=== PATIENT | female | born 1965 | race Caucasian/White ===

== ENCOUNTER 2023-05-31 08:10 | Outpatient (OUT) | payer OTHER, SELFPAY ==
[2023-05-31 08:57] LABS: Basophils Absolute Auto 0.1 10^3/uL (0.0-0.1); Basophils Percent Auto 0.7 % (0.2-2.0); Eosinophils Absolute Auto 0.3 10^3/uL (0.0-0.7); Eosinophils Percent Auto 3.6 % (0.9-7.0); Hematocrit 43.9 % (36.0-48.0); Hemoglobin 14.4 g/dL (12.0-16.0); Immature Granulocytes Abs Auto 0.05 10^3/uL (0.00-0.03); Immature Granulocytes Pct Auto 0.5 % (0.0-0.5); Lymphocytes Absolute Auto 4.2 10^3/uL (1.2-3.8); Lymphocytes Percent Auto 46.2 % (20.5-60.0); Mean Corpuscular HGB Conc 32.8 g/dL (29.9-35.2); Mean Corpuscular Hemoglobin 29.7 pg (26.7-34.0); Mean Corpuscular Volume 90.5 fL (81.0-99.0); Mean Platelet Volume 10.8 fL (9.5-13.5); Monocytes Absolute Auto 0.7 10^3/uL (0.3-0.8); Monocytes Percent Auto 7.5 % (1.7-12.0); Neutrophils Absolute Auto 3.8 10^3/uL (1.4-6.5); Neutrophils Percent Auto 41.5 % (43.0-75.0); Platelet Count 244 10^3/uL (150-450); Red Blood Count 4.85 10^6/uL (4.20-5.40); Red Cell Distribution Width 13.6 % (11.0-15.0); White Blood Count 9.2 10^3/uL (4.0-11.0)
[2023-05-31 10:46] LABS: Anion Gap 11.1; BUN Creatinine Ratio 26.9; Calcium 9.2 mg/dL (8.5-10.1); Carbon Dioxide 28.1 mmol/L (21.0-32.0); Chloride 106 mmol/L (98-107); Estimated GFR (African America >60 (>=60); Estimated GFR (Non-African Ame >60 (>=60); Glucose 103 mg/dL (74-106); Potassium 4.2 mmol/L (3.5-5.1); Sodium 141 mmol/L (136-145)
[2023-05-31 10:47] LABS: Alanine Aminotransferase 36 U/L (14-59); Albumin Globulin Ratio 0.9; Albumin Level 3.6 g/dL (3.4-5.0); Alkaline Phosphatase 79 U/L (46-116); Aspartate Amino Transferase 18 U/L (15-37); Bilirubin Total 0.3 mg/dL (0.2-1.0); Chol HDL Ratio 7.5; Cholesterol 226 mg/dL (<=200); Globulin 3.8 g/dL; HDL Cholesterol 30 mg/dL (40-60); Total Protein 7.4 g/dL (6.4-8.2); Triglycerides 250 mg/dL (<=150)
[2023-05-31 12:45] LABS: Estimated Average Glucose 123 mg/dL; Glycohemoglobin A1C 5.9 % (4.5-6.2)
[2023-06-01 05:08] LABS: HCV Ab Non Reactive (Non Reactive); HIV Ab/p24 Ag Screen Non Reactive (Non Reactive)
== END 2023-05-31 08:11 | disposition home or self-care (01) ==
LOC: LAB 08:15
PROVIDERS: PCP Nurse Practitioner Primary Care; Visit Provider Nurse Practitioner Primary Care
DX: Z11.59 Encounter for screening for other viral diseases (principal); I10 Essential (primary) hypertension; Z11.4 Encounter for screening for human immunodeficiency virus [HIV]; E78.5 Hyperlipidemia, unspecified; E78.1 Pure hyperglyceridemia; R73.03 Prediabetes
CPT/HCPCS: 36415; 80053; 80061; 83036; 84443; 85025; 86803; 87389

== ENCOUNTER 2023-06-07 07:56 | Outpatient (OUT) | payer OTHER, SELFPAY ==
--- NOTE | 2023-06-07 07:58 | MM_ITS ---
Patient: JUAN CARLOS SALAZAR Exam Date: 06/07/2023 : 1965 Gender:F Ordering : WHIT OrellanaNanci ANNABELLE Admission #: [id number] Family : Order #: [id number] CLICK HERE TO VIEW EXAM RADIOLOGY REPORT PROCEDURE: MM TOMOSYNTHESIS SCREENING BI COMPARISON: MAMMO LUIS SCREEN, 07/18/2013. MAMMO LUIS SCREEN, 01/16/2010. INDICATIONS: Screening Calculator Name NCI Breast Cancer Risk Assessment Tool 5 Year Breast Cancer Risk 1.60% Lifetime Breast Cancer Risk 8.10% Personal Breast Cancer No Personal Ovarian Cancer No Treatments None Family Cancers None LOCATION: The [facility] BREAST COMPOSITION: Scattered areas fibroglandular density. FINDINGS: DIAGNOSTIC CATEGORY 0--INCOMPLETE: NEED ADDITIONAL IMAGING EVALUATION. Scattered benign-appearing calcifications are present. Scattered benign-appearing lymph nodes are present. RIGHT BREAST: No significant suspicious finding. LEFT BREAST: 7.9 x 5 mm nodule upper outer quadrant, anterior breast. Spot compression images and ultrasound follow-up is recommended for further evaluation. RECOMMENDATIONS: ADDITIONAL MAMMOGRAPHIC VIEWS REQUIRED: LEFT BREAST - spot compression ULTRASOUND: LEFT BREAST PLEASE NOTE: A NORMAL MAMMOGRAM DOES NOT EXCLUDE THE POSSIBILITY OF BREAST CANCER. A CLINICALLY SUSPICIOUS PALPABLE LUMP SHOULD BE BIOPSIED. Dictated by: Uday Narayan MD on 06/07/2023 at 14:11 Approved by: Uday Narayan MD on 06/07/2023 at 14:13
--- NOTE | 2023-06-07 08:28 | CT_ITS ---
The [address] [address] Patient Name: JUAN CARLOS SALAZAR MRN: [id number] date: 1965 Sex: F Assigned Patient Location: MAMMO Current Patient Location: Accession/Order Number: [id number] Exam Date: 06/07/2023 08:22 Report Date: 06/09/2023 06:26 At the request of: WHIT ALANIS Procedure: CT lung screening low-dose EXAMINATION: CT lung screening low-dose HISTORY: Screening For Malignant Neoplasm Of Respiratory COMPARISON: No relevant comparison available. TECHNIQUE: Axial, Coronal, and Sagittal images were created without the administration of IV contrast material. Dose reduction techniques were achieved by using automated exposure control and/or adjustment of mA and/or kV according to patient size and/or use of iterative reconstruction technique. FINDINGS: LUNGS: A few calcified granulomas. No suspicious nodules or acute infiltrates. PLEURA: No mass, effusion, or pneumothorax. VASCULATURE: No abnormality. ELIDIA: Calcified right hilar lymph nodes compatible with chronic granulomatous disease. MEDIASTINUM: No mass or pathologic adenopathy. CARDIAC: No enlargement, pericardial thickening, or significant calcification. AORTA: No aneurysm or dissection. CHEST WALL: No mass or axillary adenopathy BONES: No bone lesion or fracture. LIMITED ABDOMEN: No suspicious findings. Limited images of the upper abdomen. OTHER: Negative. CT/CT lung screening low-dose IMPRESSION: 1. Lung-RADS Category 1 Negative. No nodules and definitely benign nodules. Continue annual screening with LDCT in 12 months. Electronically authenticated by: YOSI MAURER Date: 06/09/2023 06:26
== END 2023-06-07 07:57 | disposition home or self-care (01) ==
LOC: MAMMO 07:56
PROVIDERS: PCP Nurse Practitioner Primary Care; Visit Provider Nurse Practitioner Primary Care
DX: Z12.31 Encounter for screening mammogram for malignant neoplasm of breast (principal); Z12.2 Encounter for screening for malignant neoplasm of respiratory organs; N63.21 Unspecified lump in the left breast, upper outer quadrant
CPT/HCPCS: 71271; 77063; 77067

== ENCOUNTER 2023-06-16 15:00 | Outpatient (OUT) | payer OTHER, SELFPAY ==
--- NOTE | 2023-06-16 15:07 | MM_ITS ---
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 INDICATIONS: Calculator Name NCI Breast Cancer Risk Assessment Tool 5 Year Breast Cancer Risk 1.60% Lifetime Breast Cancer Risk 8.10% Personal Breast Cancer No Personal Ovarian Cancer No Treatments None Family Cancers None LOCATION: The [facility] BREAST COMPOSITION: Scattered areas fibroglandular density. FINDINGS: DIAGNOSTIC CATEGORY 4--SUSPICIOUS FOR MALIGNANCY. FINDING DOES NOT EXHIBIT CLASSIC FINDINGS OF BREAST CANCER: Spot compression images demonstrate a persistent nodule measuring 6.1 by 3.7 mm upper outer quadrant of the left breast. Ultrasound demonstrates at the 11 o'clock position a cystic lesion measuring 8.1 x 6.9 x 3.7 mm. This lesion has several internal septations, low level echoes and some peripheral vascularity. This does not have the typical appearance of a node and is indeterminate. In light of the peripheral soft tissue with vascularity, biopsy is recommended. This is amenable to ultrasound-guided core biopsy. RECOMMENDATIONS: ULTRASOUND-GUIDED CORE BIOPSY: LEFT BREAST PLEASE NOTE: A NORMAL MAMMOGRAM DOES NOT EXCLUDE THE POSSIBILITY OF BREAST CANCER. A CLINICALLY SUSPICIOUS PALPABLE LUMP SHOULD BE BIOPSIED. Dictated by: Uday Narayan MD on 06/17/2023 at 14:17 Approved by: Uday Narayan MD on 06/17/2023 at 14:19
== END 2023-06-16 15:01 | disposition home or self-care (01) ==
LOC: US 15:04
PROVIDERS: PCP Nurse Practitioner Primary Care; Visit Provider Nurse Practitioner Primary Care
DX: R92.8 Other abnormal and inconclusive findings on diagnostic imaging of breast (principal); N63.21 Unspecified lump in the left breast, upper outer quadrant
CPT/HCPCS: 76642; 77065

== ENCOUNTER 2023-07-06 13:29 | Day surgery (SDC) | payer OTHER, SELFPAY ==
--- NOTE | 2023-07-06 13:36 | US_ITS ---
[address] [address] Patient Name: JUAN CARLOS SALAZAR MRN: [id number] date: 1965 Sex: F Assigned Patient Location: US Current Patient Location: US Accession/Order Number: [id number] Exam Date: 07/06/2023 14:35 Report Date: 07/06/2023 15:20 At the request of: WHIT ALANIS Procedure: US breast vac bx w/ clip LT EXAMINATION: US breast vac bx w/ clip LT HISTORY: Complex Cystic Lesion COMPARISON: No relevant comparison available. TECHNIQUE: After obtaining informed consent, ultrasound-guided fine needle aspiration was performed in the usual sterile manner. FINDINGS: IMAGING: Ultrasound. BIOPSY NEEDLE: 13-gauge mammotome vacuum assisted needle LOCATION: 2:00 mixed solid and cystic left breast lesion SPECIMEN TYPE: 4 core samples LOCAL ANESTHETIC: 1 cc 1% buffered lidocaine without epinephrine subcutaneous. 5 cc 1% buffered lidocaine with epinephrine deep COMPLICATIONS: None. LABORATORY: Prepared slide smears and washings for cell block evaluation. OTHER: Negative. PATHOLOGY: Pending. An addendum will be added when results are available. US/US breast vac bx w/ clip LT IMPRESSION: 1. Uneventful ultrasound guided fine needle aspiration (FNA). 2. Pathology results are pending. Electronically authenticated by: AVRIL HERNÁNDEZ Date: 07/06/2023 15:20
--- NOTE | 2023-07-06 13:36 | MM_ITS ---
Patient: JUAN CARLOS SALAZAR Exam Date: 07/06/2023 : 1965 Gender:F Ordering : WHIT ALANIS Admission #: [id number] Family : Order #: [id number] CLICK HERE TO VIEW EXAM This report includes an Addendum and supersedes previous reports for this exam. RADIOLOGY REPORT PROCEDURE: MM POST BIOPSY LT COMPARISON: MM DIAGNOSTIC MAMMO UNILAT LT, 06/16/2023. INDICATIONS: Complex Cystic Lesion BREAST COMPOSITION: Scattered areas fibroglandular density. FINDINGS: BIOPSY MARKER: A metallic marker has been placed in the targeted location within the upper outer quadrant of the left breast. BREAST FINDINGS: The ultrasound abnormality is not congruent with the mammographic abnormality. Continued surveillance of the mammographic abnormality is recommended with 6 month follow-up Dictated by: Uday Narayan MD on 07/06/2023 at 15:24 Approved by: Uday Narayan MD on 07/06/2023 at 15:25 ADDENDUM: FINDINGS: DIAGNOSTIC CATEGORY 2--BENIGN FINDING: RECOMMENDATIONS: ROUTINE MAMMOGRAM AND CLINICAL EVALUATION IN 12 MONTHS. Dictated by: Uday Narayan MD on 07/16/2023 at 07:23 Approved by: Uday Narayan MD on 07/16/2023 at 07:24
[2023-07-06 13:40] VITALS: BP 154/81; PULSE 76; O2SAT 95
--- NOTE | 2023-07-06 14:42 | PC.NURSE ---
06/25/23 Pre procedure teaching completed with instructions on procedure, date, and time. Pt instructed to hold her ASA x 5 days prior to the biopsy.
[2023-07-06] MEDS: LIDOCAINE HCL 10 ML, SODIUM BICARBONATE 1 MEQ INJ (15:00)
[2023-07-06] MEDS: LIDOCAINE HCL/EPINEPHRINE 10 ML, SODIUM BICARBONATE 1 MEQ INJ (15:00)
== END 2023-07-06 15:00 | disposition home or self-care (01) ==
LOC: US 13:29
PROVIDERS: Radiology Diagnostic Radiology; PCP Nurse Practitioner Primary Care; Visit Provider Nurse Practitioner Primary Care
DX: N60.82 Other benign mammary dysplasias of left breast (principal); N60.22 Fibroadenosis of left breast; R92.8 Other abnormal and inconclusive findings on diagnostic imaging of breast
CPT/HCPCS: 19083; 77065; 88305

== ENCOUNTER 2023-10-09 07:26 | Outpatient (OUT) | payer OTHER, SELFPAY ==
--- OUTSIDE RECORDS SUMMARY | 2023-10-09 07:28 | XMS_ITS | CCD ---
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 Pt states has been using pain patches which relives pain, as well as ibuprofen with no relief. Pt states discomfort when turning/twisting. History of Present Illness staff HPI reviewed and agree. to add: unsure how she injured it. says this happens a few times a year and always presents like this. pain is diffuse across low back. +muscle spasms. no urinary symptoms. no numbness or tingling. no loss of bowel or bladder. pain does not radiate. ache pain, mild-moderate at rest, worse with movement. Review of Systems PHQ Score Initial Depression Screen Score: 0 Constit: no fever, no malaise, no myalgia Skin: no rash/lesions Eye: no vision changes ENT: no difficulty swallowing Resp: no cough, no SOB Cardio: no chest pain, no palpitations GI: no vomiting, nausea, diarrhea, constipation : no dysuria, urgency, frequency, hematuria Neuro: no headache, no dizziness Physical Exam Vitals & Measurements T: 36.8 ?C (Oral) HR: 75(Peripheral) BP: 130/78 SpO2: 97% HT: 165 cm HT: 165.0 cm WT: 79 kg WT: 79.0 kg BMI: 29.02 General: Well developed, well nourished, in no acute distress Head: Normocephalic/atrauma tic Eyes: EOMI, clear conjunctiva Mouth: moist mucosa, no swelling to lips Neck: supple, full ROM Lungs: normal respiratory effort, no audible wheezing Cardio: regular rate, good distal perfusion Abdomen: nondistended Musculoskeletal: no midline lumbar tenderness. +paraspinal spasm bilat. no erythema, echymosis, warmth, induration, abscess. +decreased lumbar ROM flexion, extension, and lateral rotation secondary to pain. Neurologic: Grossly normal Skin: No rashes, ulcerations, or suspicious lesions Mental Status: Alert and oriented x3. Normal mood and affect Assessment/Plan 1. Lumbar strain (S39.012A: Strain of muscle, fascia and tendon of lower back, initial encounter) neuro intact. no injury. no urinary sx. tx with NSAIDs, muscle relaxant, rest, stretching, heat. Follow up with family doctor in 7-10 days, sooner if not improving as expected, ER if condition worsens significantly. Ordered: cyclobenzaprine, 5 mg = 1 tab(s), Oral, TID, PRN muscle spasms, may cause drowsiness- do not operate heavy machinery or drive after taking, X 5 day(s), # 15 tab(s), Refills(s) 0, Pharmacy: [facility], 165, cm, 07/02/20 18:53:00 EST, Height/Length Dosin... naproxen, 500 mg = 1 tab(s), Oral, BID, with food, X 10 day(s), # 20 tab(s), Refills(s) 0, Pharmacy: [facility], 165, cm, 07/02/20 18:53:00 EST, Height/Length Dosing, 79, kg, 07/02/20 18:53:00 EST, Weight Dosing 2. Muscle spasm of back (M62.830: Muscle spasm of back) Ordered: cyclobenzaprine, 5 mg = 1 tab(s), Oral, TID, PRN muscle spasms, may cause drowsiness- do not operate heavy machinery or drive after taking, X 5 day(s), # 15 tab(s), Refills(s) 0, Pharmacy: [facility], 165, cm, 07/02/20 18:53:00 EST, Height/Length Dosin... naproxen, 500 mg = 1 tab(s), Oral, BID, with food, X 10 day(s), # 20 tab(s), Refills(s) 0, Pharmacy: [facility], 165, cm, 07/02/20 18:53:00 EST, Height/Length Dosing, 79, kg, 07/02/20 18:53:00 EST, Weight Dosing Follow-up With When Contact Information NONE, XXXX [phone] Additional Instructions: Patient Education Lumbosacral Strain Problem List/Past Medical History Ongoing No qualifying data Historical No qualifying data Procedure/Surgical History section. Medications aspirin 81 mg Oral EC Tab, Oral, Daily cyclobenzaprine 5 mg Tab, 5 mg= 1 tab(s), Oral, TID, PRN Iron 100 Plus, Oral, Daily Multi Vitamin+ naproxen 500 mg Tab, 500 mg= 1 tab(s), Oral, BID Vitamin B Complex oral tablet, Oral, Daily Vitamin C, Daily Vitamin D, Oral, qWeek vitamin E, Oral, Daily Allergies penicillin (Rash) Social History Tobacco 10 or more cigarettes (1/2 pack or more)/day in last 30 days Tobacco Use:. Cigarettes, 07/02/2020 Family History Family history is negative [facility] Comment on above: Result Comment: Elec tronically Signed By: NOHELIA LEVY PA-C\.br\Date and Time Signed: 07/02/20 19:22 EST Patient Educationon 07-02-20 20 Patient Education Family Medicine Lumbosacral Strain Lumbosacral strain is one of the most common causes of back pain. There are many causes of back pain. Most are not serious conditions. CAUSES Your backbone (spinal column ) is made up of 24 main vertebral bodies, the sacrum, and the coccyx. These are held together by muscles and tough, fibrous tissue (ligaments ). Nerve roots pass through the openings between the vertebrae. A sudden move or injury to the back may cause injury to, or pressure on, these nerves. This may result in localized back pain or pain movement (radiation ) into the buttocks, down the leg, and into the foot. Sharp, shooting pain from the buttock down the back of the leg (sciatica ) is frequently associated with a ruptured (herniated ) disk. Pain may be caused by muscle spasm alone. Your caregiver can often find the cause of your pain by the details of your symptoms and an exam. In some cases, you may need tests (such as X-rays). Your caregiver will work with you to decide if any tests are needed based on your specific exam. HOME CARE INSTRUCTIONS ? Avoid an underactive lifestyle. Active exercise, as directed by your caregiver, is your greatest weapon against back pain. ? Avoid hard physical activities (tennis, racquetball, waterskiing) if you are not in proper physical condition for it. This may aggravate or create problems. ? If you have a back problem, avoid sports requiring sudden body movements. Swimming and walking are generally safer activities. ? Maintain good posture. ? Avoid becoming overweight (obese ). ? Use bed rest for only the most extreme, sudden (acute ) episode. Your caregiver will help you determine how much bed rest is necessary. ? For acute conditions, you may put ice on the injured area. ? Put ice in a plastic bag. ? Place a towel between your skin and the bag. ? Leave the ice on for 15-20 minutes at a time, every 2 hours, or as needed. ? After you are improved and more active, it may help to apply heat for 30 minutes before activities. See your caregiver if you are having pain that lasts longer than expected. Your caregiver can advise appropriate exercises or therapy if needed. With conditioning, most back problems can be avoided. SEEK IMMEDIATE MEDICAL CARE IF: ? You have numbness, tingling, weakness, or problems with the use of your arms or legs. ? You experience severe back pain not relieved with medicines. ? There is a change in bowel or bladder control. ? You have increasing pain in any area of the body, including your belly (abdomen ). ? You notice shortness of breath, dizziness, or feel faint. ? You feel sick to your stomach (nauseous ), are throwing up (vomiting ), or become sweaty. ? You notice discoloration of your toes or legs, or your feet get very cold. ? Your back pain is getting worse. ? You have a fever. MAKE SURE YOU: ? Understand these instructions. ? Will watch your condition. ? Will get help right away if you are not doing well or get worse. Document Released: 05/26/2006 Document Revised: 11/07/2012 Document Reviewed: 11/15/2009 ExitCare? Patient Information ?2013 [employer], [facility] Encounters Encounter Date Encounter Type Care Provider Facility Start: 10-06-2023 Telephone encounter Christian Orellana [facility] Rheumatology Plan of Treatment Date Care Activity Detail Author Start: 04-30-2023 Influenza vaccination Influenza Vaccine [facility] Start: 2013 Administration of varicella zoster vaccine Zoster (Shingles) Vaccine (1 of 2) [facility] Start: 1984 Screening for malignant neoplasm of cervix Pap Smear [facility] Start: 1982 DTaP,Tdap and Td Vaccines (1 - Tdap) DTaP,Tdap and Td Vaccines (1 - Tdap) [facility] Start: 1981 Adult BMI Screening Adult BMI Screening [facility] Start: 1975 Depression Screening Depression Screening [facility] Start: 1975 Tobacco Screening Tobacco Screening [facility] Payers Date Payer Category Payer Medicaid [place] [employer] [place] [employer] [id number] 2019-Present [phone] [place] [id number] Social History Date Type Detail Facility [facility] Start: 02-08-2019 End: 09-16-2020 History of Social function [facility] Start: 02-08-2019 End: 09-16-2020 Childcare [facility] Childcare Unknown [facility] Start: 1965 Sex Assigned At Not on file [facility] Note 10-06-2023 Telephone Encounter - Christian Nix CNA - 10/06/2023 9:41 AM EST Note Date & Type Note Facility 10-06-2023 Miscellaneous Notes Formattin g of this note might be different from the original. NEW PATIENT Z76.89 polyarthritis documented in this encounter [employer] [facility] Telephone encounter Note 10-06-2023 Telephone Encounter - Christian Nix CNA - 10/06/2023 9:41 AM EST Note Date & Type Note Facility 10-06-2023 Telephone encounter Note NEW PATIENT Z76.89 polyarthritis [facility] Instructions Note Date & Type Note Facility Instructions Not on filedocumented in this en counter [facility] Summary Purpose Family History No Family History Records Found Advance Directives No Advanced Directives Records Found Additional Source Comments INFORMATION SOURCE (unrecogn ized section and content) DATE CREATED AUTHOR 07/03/2020 Vin[facility] Care Teams (unrecognized sec tion and content) Bioprocessing Manufacturing Technician Relationship Specialty Start Date End Date Edita Aranda, PROPELLANT CHARGE LOADER-AUTO CUSTOMIZE PAINTER [address] [place] [address] [place] [address] PCP - General Family Medicine 12/18/17 FOR RECORDS PERTAINING TO PATIENTS WHO ARE OR HAVE BEEN ENROLLED IN A CHEMICAL DEPENDENCY/SUBSTANCEABUSE PROGRAM, SOME INFORMATION MAY BE OMITTED. This clinical summary was aggregated from multiple sources. Caution should be exercised in using it in the provision of clinical care. This summary normalizes information from multiple sources, and as a consequence, information in this document may materially change the coding, format and clinical context of patient data. In addition, data may be omitted in some cases. CLINICAL DECISIONS SHOULD BE BASED ON THE PRIMARY CLINICAL RECORDS. [email or web address] provides no warranty or guarantee of the accuracy or completeness of information in this document.
[2023-10-09 07:49] LABS: Chol HDL Ratio 5.3; Cholesterol 184 mg/dL (<=200); Estimated Average Glucose 123 mg/dL; Glycohemoglobin A1C 5.9 % (4.5-6.2); HDL Cholesterol 35 mg/dL (40-60); Triglycerides 269 mg/dL (<=150); VLDL CHOLESTEROL 53.8 mg/dL
== END 2023-10-09 07:27 | disposition home or self-care (01) ==
LOC: LAB 07:26
PROVIDERS: PCP Nurse Practitioner Primary Care; Visit Provider Nurse Practitioner Primary Care
DX: E78.5 Hyperlipidemia, unspecified (principal); E78.1 Pure hyperglyceridemia; R73.03 Prediabetes
CPT/HCPCS: 36415; 80061; 83036